=== PATIENT | female | born 1980 | race Two or more races ===

== ENCOUNTER 2021-07-21 20:27 | Observation (INO) | payer MEDICAID, SELFPAY ==
--- NOTE | ~2021-07-21 | XR_ITS ---
EXAMINATION: XR CHEST CLINICAL INFORMATION: Cough. COMPARISON: None. TECHNIQUE: PA view of the chest was obtained. FINDINGS: No significant abnormality is noted involving the heart, lungs, mediastinum, bony thorax or soft tissues. XR/XR chest 1V IMPRESSION: Unremarkable examination.
[2021-07-21 21:49] VITALS: BP 135/75; PULSE 86; RESP 18; TEMP 36.9; O2SAT 98; BMI 27.4
[2021-07-21 23:51] VITALS: BP 119/73; PULSE 67; RESP 18; TEMP 37; O2SAT 100
[2021-07-22] VITALS (7 sets, daily range): BP systolic 100–104; BP diastolic 67–86; PULSE 71–100; RESP 14–18; O2SAT 96–99
--- NOTE | 2021-07-22 00:29 | ED.ASTHMA ---
HPI - Asthma General Chief Complaint: Asthma Stated Complaint: COUGH Time Seen by Provider: 07/21/21 23:54 Source: patient Mode of arrival: ambulatory Limitations: no limitations History of Present Illness HPI Narrative: 40-year-old female past medical history significant for HIV unknown last CD4 count, asthma, homelessness presents to the emergency department with 1 week of progressively worsening cough, shortness of breath. Patient tells me that this feels like her typical asthma attack. He tells me she has been having an on productive dry cough has been worsening. She tells me she feels fatigued and tired. She reports subjective fevers and chills. She denies chest pain, nausea, vomiting, abdominal pain, headache, dizziness, neck pain. MD complaint: asthma attack and shortness of breath Onset (ago): week(s) (1) Severity: moderate Context: none known Associated symptoms: none Related Data Previous Rx's Medication Instructions Recorded albuterol sulfate 90 mcg/actuation 2 inh INHALATION Q4-6H PRN #1 ea 07/22/21 breath activated powder inhaler benzonatate 100 mg capsule 100 mg PO BID PRN #20 cap 07/22/21 prednisone 20 mg tablet 20 mg PO DAILY 5 Days #5 tab 07/22/21 sulfamethoxazole 800 1 tab PO BID 10 Days #20 tab 07/22/21 mg-trimethoprim 160 mg tablet (Bactrim DS) Allergies Allergy/AdvReac Type Severity Reaction Status Date / Time No Known Allergies Allergy Verified 07/21/21 21:53 Review of Systems Review of Systems: Constitutional : No Weight loss, No Fever, No Chills, No Fatigue, No Malaise ENT/Mouth : No sore throat, No Rhinorrhea Eyes: No Eye Pain, No Swelling, No Redness Cardiovascular : No Chest Pain, No SOB, No Dyspnea on Exertion, No Orthopnea, No Edema, No Palpitations Respiratory : No Cough, No Sputum, No Wheezing Gastrointestinal : No Nausea, No Vomiting, No Diarrhea, No Constipation, No abdominal Pain, No Hematochezia, No Melena Genitourinary : No Dysuria, No Urinary Frequency, No Hematuria, Musculoskeletal : No joint pain, No Myalgias, No Joint Swelling Skin : No Skin Lesions, No rash Neuro : No Weakness, No Numbness, No Dizziness, No Headache Psych : No Anxiety/Panic, No Depression All other systems reviewed and are negative Yes all other systems are reviewed and are negative [facility] Past Medical History Attestation statement: The following information was validated with the patient. Source: old records reviewed and nursing notes reviewed Medical History Anxiety Asthma Depressed HIV (human immunodeficiency virus infection) Social History Social History Advance Directives: No Physical Exam Vital Signs: Vital Signs: Last Vital Signs Temp 98.6 F 07/21/21 23:51 Pulse 96 07/22/21 03:12 Resp 16 07/22/21 03:12 BP 104/86 07/22/21 02:21 Pulse Ox 97 07/22/21 02:21 BMI result Body Mass Index 27.4 VSS Appearance: Alert.? Oriented X3.? No acute distress.? patient with dry nonproductive cough Head: Normocephalic, atraumatic, no step-offs or deformities Eyes: Pupils equal, round and reactive to light.? ENT: Pharynx normal.? Neck: Normal inspection.? Neck supple.? CVS: Normal heart rate and rhythm.? Pulses normal.? Respiratory: No respiratory distress.? +diminished breath sounds and wheezing throughout Abdomen: Soft and nontender.? Skin: Skin warm and dry.? Normal skin color.? Normal skin turgor.? Extremities: No lower extremity edema.? No calf ttp. 5/5 strength to bilateral upper and lower extremities Back: No midline tenderness, no C-spine tenderness, full range of motion, no CVA tenderness bilaterally Neuro: Oriented X 3.? No motor deficit.? No sensory deficit. CN 2-12 intact Course Reevaluation(s) Reevaluation #1: CBC appears to be within normal limits. COVID negative. Influenza negative. Chest x-ray unremarkable. Trop negative, EKG non ischemic. Chemistry pending. Time: 03:01 Reevaluation #2: Patient will be admitted for acute asthma exacerbation. Time: 03:06 Reevaluation #3: Chemistry hemolyzed. Dr. Gunderson will follow up on chemistry findings. Cultures, lactic and VBG pending. Time: 03:17 MDM - Asthma MDM Narrative Medical decision making narrative: [age] yo f pmhx asthma, hiv, homeless prsents w/ one week of asthma, cp and sob PE with diminished breath sounds bilaterally, wheezing. Patient with dry intermittent cough. regular rate and rhythm. Abdomen soft nontender nondistended. Negative Homans sign. VSS 100% on RA. No accessory muscle use for breathing. PERC negative unlikely PE Plan at this time is laboratory studies, COVID, influenza, troponin, magnesium Medical Records Attestation: I reviewed the patient's medical records. Lab Data Attestation: I reviewed the patient's lab results. Result diagrams: 07/22/21 02:18 07/22/21 02:18 Labs: Lab Results 07/22/21 07/22/21 07/22/21 Range/Units 01:43 02:18 02:18 WBC 9.8 (4.8-10.8) X10*3/uL RBC 3.92 L (4.20-5.50) X10*6/uL Hgb 11.7 L (12.0-16.0) g/dl Hct 37.7 (37.0-47.0) % MCV 96.2 (80.0-98.0) fL MCH 29.8 (27.0-33.0) pg MCHC 31.0 (31.0-35.0) g/dl RDW 15.7 (11.0-16.0) % Plt Count 283 (160-400) X10*3/uL MPV 10.2 (9.4-12.3) fL Immature Gran % (Auto) 0.3 (0.0-0.4) % Neut % (Auto) 50.6 (45-73) % Lymph % (Auto) 37.0 (20-40) % Laurens % (Auto) 8.4 (2-11) % Eos % (Auto) 3.3 (0-4) % Baso % (Auto) 0.4 (0-2) % Lymph # (Auto) 3.6 (1.2-4.9) X10*3/uL Laurens # (Auto) 0.8 (0.1-1.2) X10*3/uL Eos # (Auto) 0.3 (0.0-0.4) X10*3/uL Baso # (Auto) 0.0 (0.0-0.2) X10*3/uL Abs Immat Gran (auto) 0.03 (0.00-0.03) X10*3/uL Absolute Neuts (auto) 5.0 (2.0-8.3) x10*3/uL Absolute Nucleated RBC 0.000 (0.0-0.012) X10*3/uL Nucleated RBC % (auto) 0.0 (0.0-0.2) /100WBC Troponin I High Sens < 3.5 (<3.5-17.0) ng/L COVID-19 (DULCE) Negative (Negative) COVID-19 Clin Com See Note Influenza Type A (KEE) (Negative) Influenza Type B (KEE) (Negative) Influenza A & B Note 07/22/21 Range/Units 02:18 WBC (4.8-10.8) X10*3/uL RBC (4.20-5.50) X10*6/uL Hgb (12.0-16.0) g/dl Hct (37.0-47.0) % MCV (80.0-98.0) fL MCH (27.0-33.0) pg MCHC (31.0-35.0) g/dl RDW (11.0-16.0) % Plt Count (160-400) X10*3/uL MPV (9.4-12.3) fL Immature Gran % (Auto) (0.0-0.4) % Neut % (Auto) (45-73) % Lymph % (Auto) (20-40) % Laurens % (Auto) (2-11) % Eos % (Auto) (0-4) % Baso % (Auto) (0-2) % Lymph # (Auto) (1.2-4.9) X10*3/uL Laurens # (Auto) (0.1-1.2) X10*3/uL Eos # (Auto) (0.0-0.4) X10*3/uL Baso # (Auto) (0.0-0.2) X10*3/uL Abs Immat Gran (auto) (0.00-0.03) X10*3/uL Absolute Neuts (auto) (2.0-8.3) x10*3/uL Absolute Nucleated RBC (0.0-0.012) X10*3/uL Nucleated RBC % (auto) (0.0-0.2) /100WBC Troponin I High Sens (<3.5-17.0) ng/L COVID-19 (DULCE) (Negative) COVID-19 Clin Com Influenza Type A (KEE) Negative (Negative) Influenza Type B (KEE) Negative (Negative) Influenza A & B Note See Note ECG Data Attestation: I personally reviewed and interpreted this ECG as follows: ECG interpretation date: 07/22/21 ECG interpretation time: : Prior ECG tracings: not available for review Interpretation: Ventricular rate of 62 SC normal, QRS normal, QT / QTC normal. EKG shows normal sinus rhythm no ST elevations or inversions concerning for ischemia. No previous EKGs to compare with Critical Care Time Critical Care Time Critical Care Time: No Discharge Plan Discharge Clinical Impression: Bronchitis, Asthma with acute exacerbation Patient Disposition: Admitted As Inpatient Additional Instructions: Take your medications as prescribed. If you were prescribed antibiotics today, it is important that you take your medication to their entirety, do not skip any doses, do not finish them early. Follow-up with your primary care provider this week. Return to the emergency department with new or worsening symptoms. Such as fevers, chills, chest pain, shortness of breath, nausea, vomiting, dizziness, headache, vision changes, lethargy In case of emergency call 911
[2021-07-22] MEDS: Albuterol Sulfate (0.083%) 2.5 MG/3 ML VIAL.NEB 10 MG INHALE ×2 (01:14→03:09)
[2021-07-22 02:04] LABS: COVID-19 Test Negative (Negative)
--- NOTE | 2021-07-22 02:19 | ECG_ITS ---
Test Reason : dYSPNEA Blood Pressure : / mmHG Vent. Rate : 062 BPM Atrial Rate : 062 BPM P-R Int : 116 ms QRS Dur : 078 ms QT Int : 406 ms P-R-T Axes : 037 050 023 degrees QTc Int : 412 ms Normal sinus rhythm Normal ECG No previous ECGs available Referred By: Natalia Matta Electronically Signed By:BECKY CAIN MD
[2021-07-22 02:23] LABS: Basophils Percent Auto 0.4 % (0-2); Eosinophils Absolute Auto 0.3 X10*3/uL (0.0-0.4); Eosinophils Percent Auto 3.3 % (0-4); Hematocrit 37.7 % (37.0-47.0); Hemoglobin 11.7 g/dl (12.0-16.0); Imm Gran Abs Auto 0.03 X10*3/uL (0.00-0.03); Imm Gran Pct Auto 0.3 % (0.0-0.4); Lymphocytes Absolute Auto 3.6 X10*3/uL (1.2-4.9); Mean Corpuscular Hemoglobin 29.8 pg (27.0-33.0); Mean Corpuscular Volume 96.2 fL (80.0-98.0); Mean Platelet Volume 10.2 fL (9.4-12.3); Monocytes Absolute Auto 0.8 X10*3/uL (0.1-1.2); Monocytes Percent Auto 8.4 % (2-11); Neutrophils Percent Auto 50.6 % (45-73); Platelet Count 283 X10*3/uL (160-400); Red Blood Count 3.92 X10*6/uL (4.20-5.50); Red Cell Distribution Width 15.7 % (11.0-16.0); White Blood Count 9.8 X10*3/uL (4.8-10.8)
[2021-07-22 02:24] LABS: MANUAL DIFF FLAG NO
[2021-07-22] MEDS: Magnesium Sulfate/H2O 2 GM/50 ML PIGGYBACK IV (02:37)
[2021-07-22] MEDS: methylPREDNISolone Sod Succ 125 MG/2 ML VIAL IVPUSH (02:37)
[2021-07-22 02:48] LABS: Troponin-I High Sensitivity < 3.5 ng/L (<3.5-17.0)
[2021-07-22 02:50] LABS: Influenza A Negative (Negative); Influenza B2 Negative (Negative)
[2021-07-22 04:21] LABS: Venous Blood Gas Refer to POC result
[2021-07-22 04:22] LABS: VBG HCO3 19 mmol/L (22-26); VBG pCO2 29 mmHg; VBG pH 7.42 (7.32-7.43); VBG pO2 78 mmHg
[2021-07-22 04:36] LABS: Lactic Acid 3.4 mmol/L (0.5-2.0)
[2021-07-22 05:21] LABS: Alanine Aminotransferase 11 U/L (0-31); Albumin Level 3.8 g/dL (3.5-5.0); Alkaline Phosphatase 68 U/L (39-117); Anion Gap 15 (12-20); Aspartate Amino Transferase 17 U/L (5-31); Bilirubin Total 0.2 mg/dL (0.0-1.0); Blood Urea Nitrogen 12 mg/dL (9-16); Carbon Dioxide 20 mmol/L (22-29); Chloride 106 mmol/L (96-108); Creatinine Clr Calc Pharmacy 87.9; Estimated Glomerular Filt Rate > 60; Glucose Random 148 mg/dL (60-115); Magnesium 2.7 mg/dL (1.6-2.6); Potassium 3.2 mmol/L (3.3-5.1); Sodium 138 mmol/L (135-145)
[2021-07-22] MEDS: Enoxaparin Sodium 40 MG/0.4 ML SYRINGE SUBCUT (05:49)
[2021-07-22] MEDS: methylPREDNISolone Sod Succ 40 MG/ML VIAL IVPUSH (05:49)
[2021-07-22] MEDS: 0.9 % Sodium Chloride 1,000 ML 999 ML IV (05:51)
--- NOTE | 2021-07-22 06:03 | PM.IMHP ---
History of Present Illness Date of Service: 07/22/21 Chief Complaint: SOB Filipino-speaking only, history is obtained with help of rental sales agent 40-year-old female with past medical history of asthma,HIV and substance abuse who presents to the hospital with complaints of shortness of breath, wheezing, cough. Patient reports that she is homeless, does not have her with, has had her symptoms For 1 week and have been worsening. She reports chills with no fever, has palpitations, chest pain with cough, no abdominal pain nausea or vomiting, no diarrhea constipation. no lower extremity edema. No urinary symptoms. On arrival to the ED patient hemodynamically stable satting 99% on room air Labs are significant for WBC count of 9.8, hemoglobin of 11.7, potassium 3.2, lactic acid of 3.4, patient reports that she used crack cocaine the day before. patient also has history of HIV and reports that she is on medications all no documented medications on chart patient received multiple rounds of breathing treatment, as well as magnesium with persistent wheezing, and shortness of breath , therefore she will be admitted for further management Review of Systems Review of Systems: Yes all other systems are reviewed and are negative [facility] Medical History Anxiety Asthma Depressed HIV (human immunodeficiency virus infection) Family History (Updated 07/22/21 @ 06:08 by Rita Logan MD) Other No family history of coronary artery disease Surgical History (Updated 07/22/21 @ 06:08 by Rita Logan MD) History of Social History (Updated 07/22/21 @ 06:08 by Rita Logan MD) Alcohol intake: current Patient Tobacco Use Status: Never used Tobacco Use of substances other than those prescribed or required for medical reasons: Yes Substance Use Type: Crack/Cocaine Advance Directives: No Meds Allergies Allergy/AdvReac Type Severity Reaction Status Date / Time No Known Allergies Allergy Verified 07/21/21 21:53 Active Medications: Current Medications Acetaminophen (Acetaminophen 325 Mg Tablet) 650 mg PO Q6H PRN PRN Reason: Pain, Mild (Pain Scale 1-3) Albuterol/Ipratropium (Albuterol/Iprat 2.5/0.5mg 3 Ml Ampul.Neb) 3 ml INHALE RQ4H PRN PRN Reason: Shortness of Breath/Wheezing Albuterol/Ipratropium (Albuterol/Iprat 2.5/0.5mg 3 Ml Ampul.Neb) 3 ml INHALE RQ4H WHILE AWAKE [facility] Docusate Sodium (Docusate Sodium 100 Mg Capsule) 100 mg PO DAILY PRN PRN Reason: Constipation Enoxaparin Sodium (Enoxaparin Sodium 40 Mg/0.4 Ml Syringe) 40 mg SUBCUT Q24H [facility] Last Admin: 07/22/21 05:49 Dose: 40 mg Documented by: Methylprednisolone Sodium Succinate (Methylprednisolone Sod Succ 40 Mg/Ml Vial) 40 mg IVPUSH Q12H [facility] Last Admin: 07/22/21 05:49 Dose: 40 mg Documented by: Ondansetron HCl (Ondansetron Hcl 4 Mg/2 Ml Vial) 4 mg IVPUSH Q8H PRN PRN Reason: Nausea and Vomiting Sodium Chloride (0.9 % Sodium Chloride Flush 3 Ml Syringe) 3 ml IVFLUSH QSHIFT [facility] Physical Exam Vital Signs and Narrative: Vital Signs: Last Vital Signs Temp 98.6 F 07/21/21 23:51 Pulse 96 07/22/21 03:12 Resp 16 07/22/21 03:12 BP 104/86 07/22/21 02:21 Pulse Ox 97 07/22/21 02:21 BMI result Body Mass Index 27.4 Const: General: cooperative and no acute distress Orientation/consciousness: patient oriented x3 Eyes: General: appearance normal, both eyes and all related structures Pupils: Equal, round and reactive pupils present Resp: Other: expiratory wheezing Effort & Inspection: normal respiratory effort Cardio: Rate: regular rate Rhythm: regular rhythm GI: Palpation (GI): Soft to palpation Auscultation: normal bowel sounds Skin: General skin exam: no rashes or lesions noted Neuro: General: patient oriented x3 Cranial nerves: Yes Equal, round and reactive pupils present Cognition (Neuro): normal cognition Extrem: General: Yes normal to inspection and Yes no pedal edema Results Labs CBC and Chem 7: 07/22/21 02:18 07/22/21 04:11 Labs: Laboratory Results - last 24 hr 07/22/21 07/22/21 07/22/21 01:43 02:18 02:18 MCV 96.2 MCH 29.8 MCHC 31.0 RDW 15.7 Plt Count 283 MPV 10.2 Immature Gran % (Auto) 0.3 Neut % (Auto) 50.6 Lymph % (Auto) 37.0 Sunflower % (Auto) 8.4 Eos % (Auto) 3.3 Baso % (Auto) 0.4 Lymph # (Auto) 3.6 Sunflower # (Auto) 0.8 Eos # (Auto) 0.3 Baso # (Auto) 0.0 Abs Immat Gran (auto) 0.03 Absolute Neuts (auto) 5.0 Absolute Nucleated RBC 0.000 Nucleated RBC % (auto) 0.0 VBG pH VBG pCO2 VBG pO2 VBG HCO3 VBG O2 Saturation VBG Base Excess Anion Gap Estim Creat Clear Calc Estimated GFR Random Glucose Lactic Acid Calcium Magnesium Total Bilirubin AST ALT Alkaline Phosphatase Troponin I High Sens < 3.5 Total Protein Albumin COVID-19 (DULCE) Negative COVID-19 Clin Com See Note Influenza Type A (KEE) Influenza Type B (KEE) Influenza A & B Note 07/22/21 07/22/21 07/22/21 02:18 04:11 04:11 MCV MCH MCHC RDW Plt Count MPV Immature Gran % (Auto) Neut % (Auto) Lymph % (Auto) Sunflower % (Auto) Eos % (Auto) Baso % (Auto) Lymph # (Auto) Sunflower # (Auto) Eos # (Auto) Baso # (Auto) Abs Immat Gran (auto) Absolute Neuts (auto) Absolute Nucleated RBC Nucleated RBC % (auto) VBG pH VBG pCO2 VBG pO2 VBG HCO3 VBG O2 Saturation VBG Base Excess Anion Gap 15 Estim Creat Clear Calc 87.9 Estimated GFR > 60 Random Glucose 148 H Lactic Acid 3.4 H* Calcium 9.0 Magnesium 2.7 H Total Bilirubin 0.2 AST 17 ALT 11 Alkaline Phosphatase 68 Troponin I High Sens Total Protein 7.0 Albumin 3.8 COVID-19 (DULCE) COVID-19 Clin Com Influenza Type A (KEE) Negative Influenza Type B (KEE) Negative Influenza A & B Note See Note 07/22/21 04:14 MCV MCH MCHC RDW Plt Count MPV Immature Gran % (Auto) Neut % (Auto) Lymph % (Auto) Sunflower % (Auto) Eos % (Auto) Baso % (Auto) Lymph # (Auto) Sunflower # (Auto) Eos # (Auto) Baso # (Auto) Abs Immat Gran (auto) Absolute Neuts (auto) Absolute Nucleated RBC Nucleated RBC % (auto) VBG pH 7.42 VBG pCO2 29 VBG pO2 78 VBG HCO3 19 L VBG O2 Saturation 95.0 VBG Base Excess -4.0 Anion Gap Estim Creat Clear Calc Estimated GFR Random Glucose Lactic Acid Calcium Magnesium Total Bilirubin AST ALT Alkaline Phosphatase Troponin I High Sens Total Protein Albumin COVID-19 (DULCE) COVID-19 Clin Com Influenza Type A (KEE) Influenza Type B (KEE) Influenza A & B Note Imaging Radiologist's Impressions: Impressions Chest X-Ray 07/22/21 00:04 IMPRESSION: Unremarkable examination. Assessment and Plan (1) Asthma with acute exacerbation: Status: Acute Plan 40-year-old female who presents the hospital with complaints of shortness of breath found to have asthma exacerbation # asthma exacerbation - has no inhalers at home - exacerbating factor likely crack cocaine use - no evidence of viral infection and viral panel, negative for influenza and COVID-19 - will treat with Solu-Medrol, DuoNeb p.r.n. as well as scheduled - monitor respiratory status # HIV - reports that she takes medications although not documented - no known CD4 count - will need outpatient follow-up DVT prophylaxis: Lovenox Quality Stroke Does the patient have a stroke diagnosis?: No VTE Prior VTE?: No VTE Risk Level:: Medical - moderate - high VTE Device Contraindication: Treatment Not Indicated VTE Drug Contraindication: N/A - Med Ordered
[2021-07-22 06:17] LABS: Reflex Lactate? Lactic Acid Added
[2021-07-22 07:07] LABS: MANUAL DIFF FLAG NO
[2021-07-22 07:15] LABS: Basophils Percent Auto 0.4 % (0-2); Eosinophils Absolute Auto 0.1 X10*3/uL (0.0-0.4); Eosinophils Percent Auto 1.2 % (0-4); Hematocrit 34.3 % (37.0-47.0); Hemoglobin 10.9 g/dl (12.0-16.0); Imm Gran Abs Auto 0.03 X10*3/uL (0.00-0.03); Imm Gran Pct Auto 0.3 % (0.0-0.4); Lymphocytes Absolute Auto 1.8 X10*3/uL (1.2-4.9); Lymphocytes Percent Auto 16.5 % (20-40); Mean Corpuscular HGB Conc 31.8 g/dl (31.0-35.0); Mean Corpuscular Hemoglobin 29.9 pg (27.0-33.0); Mean Corpuscular Volume 94.2 fL (80.0-98.0); Monocytes Absolute Auto 0.6 X10*3/uL (0.1-1.2); Monocytes Percent Auto 5.8 % (2-11); Neutrophils Percent Auto 75.8 % (45-73); Platelet Count 268 X10*3/uL (160-400); Red Blood Count 3.64 X10*6/uL (4.20-5.50); Red Cell Distribution Width 15.5 % (11.0-16.0); White Blood Count 10.6 X10*3/uL (4.8-10.8)
--- NOTE | 2021-07-22 07:17 | PC.NURSE ---
This RN assumed care of patient when they were brought back from the waiting room. Patient and her were together in the same room, noted to be talking negatively about staff in Swedish. was discharged and instructed to wait in the waiting room until further notice. Patient upset about this, seen leaving to go visit in waiting room. Limits set regarding this behavior. Patient's attempted to come back into the room twice, became aggressive towards staff, required security intervention. Patient noticeably calmer without present. Patient understands that she will be admitted and agreed to stay for treatment.
[2021-07-22 07:27] LABS: Anion Gap 10 (12-20); Blood Urea Nitrogen 10 mg/dL (9-16); Calcium 8.6 mg/dL (8.4-10.2); Carbon Dioxide 22 mmol/L (22-29); Chloride 107 mmol/L (96-108); Creatinine Clr Calc Pharmacy 98.7; Estimated Glomerular Filt Rate > 60; Glucose Random 166 mg/dL (60-115); Potassium 3.2 mmol/L (3.3-5.1); Sodium 136 mmol/L (135-145)
[2021-07-22 07:31] LABS: ~Lactic Acid-LAB USE ONLY 2.1 mmol/L (0.5-2.0)
[2021-07-22] MEDS: Albuterol/Iprat 2.5/0.5MG 3 ML AMPUL.NEB INHALE (08:04)
[2021-07-22] MEDS: Potassium Chloride Packet 20 MEQ PACKET 40 MEQ PO ×2 (08:27→10:10)
[2021-07-22] MEDS: 0.9 % Sodium Chloride Flush 3 ML SYRINGE IVFLUSH (08:28)
--- NOTE | 2021-07-22 08:48 | PHA.MEDREC ---
Pharmacy Consult ? Medication Reconciliation Pharmacy has completed the medication reconciliation. Pt came from [place] on Sunday, but could not provide pharmacy name for contact. Had bottle of Dolutegravir 50mg/lamivudine 300mg bottle on her, but stated she has not been taking it because it is to be taken with a big meal and she has been homeless. Pt also stated that she takes something for cholesterol, depression, and hemoglobin but was unable to provide any information about what they were or doses. She stated she has not taken any of her medications for a while. Caren Golden, PharmD
[2021-07-22 09:05] LABS: Reflex Lactate? 2 Y
--- NOTE | 2021-07-22 09:34 | MHC.CM.PN ---
Addendum entered by Evelyn Arredondo 07/22/21 11:16: [facility] BUS SCHEDULES WERE PRINTED AND GIVEN TO PT AND HER BOYFRIEND WHO WAS AT BEDSIDE. INSTRUCTIONS WERE PROVIDED A SECOND TIME WITH BOYFRIEND PRESENT THEY BOTH REPORT UNDERSTANDING OBSERVATION NOTICE DELIVERED, COPY SENT TO MEDICAL RECORDS Original Note: CM MET WITH PT WITH THE ASSISTANCE OF A SOLUTION ARCHITECT [place] ONE W[place] AGO WITH PLANS TO STAY WITH HER BOYFRIEND IN HIS MOTHERS APARTMENT. SHE REPORTS SHE IS NOW HOMELESS BECAUSE HIS MOTHER WOULD NOT ALLOW HER TO STAY PT IS ALSO HIV POSITIVE AND DOES NOT HAVE ANY MEDICAL PROVIDERS OR MEDICATIONS PT ALSO ADMITS TO USING CRACK COCAINE PER DISCUSSION, PT WILL DC WITH A PLAN TO PRESENT TO THE [facility] TO INITIATE A [place] APPLICATION AND BE CONNECTED WITH A PHARMACEUTICAL SERVICE REPRESENTATIVE SHE WILL ALSO GO TO THE URGENT CARE SERVICES FOR HIV MEDICATIONS PT WILL BE GIVEN A LIST OF LOCAL SHELTERS AND BUS PASSES WELL AND WAS ENCOURAGED TO CONNECT WITH A PHARMACEUTICAL SERVICE REPRESENTATIVE AT THE SENIOR LIVING TO ASSIST HER IN SECURING DIRECTOR OF DIRECT MARKETING HOUSING
[2021-07-22 11:19] LABS: Potassium 4.1 mmol/L (3.3-5.1)
--- NOTE | 2021-07-22 11:41 | PM.DS ---
DS: Providers Provider Date of Service: 07/22/21 Date of admission: 07/22/21 04:52 Primary care physician: None Physician DS: Diagnosis Discharge Diagnosis (1) Asthma with acute exacerbation: Status: Acute DS: Summary Hospital Course Hospital Course: Same day admit and discharge Chief Complaint: SOB ? [place]-speaking only, history is obtained? with help of hourly sign language interpreter 40-year-old female with past medical history of asthma,HIV and substance abuse who presents to the hospital with complaints of shortness of breath, wheezing, cough.? Patient reports that she is homeless, does not have her with, has had her symptoms ? For 1 week and have been worsening.? She reports chills with no fever, has palpitations, chest pain with cough, no abdominal pain nausea or vomiting, no diarrhea constipation. no lower extremity edema.? No urinary symptoms. On arrival to the ED patient hemodynamically stable satting 99% on room air Labs are significant for WBC count of 9.8, hemoglobin of 11.7, potassium 3.2, lactic acid of 3.4, ?patient reports that she used crack cocaine the day before. patient also has history of HIV and reports that she is on medications all no documented medications on chart ?patient received multiple rounds of breathing treatment, as well as magnesium with persistent wheezing, and shortness of breath , therefore she will be admitted for further management hospital course 40-year-old female who presents the hospital with complaints of shortness of breath found to have mild asthma exacerbation #? acute mild asthma exacerbation with history of mild intermittent asthma, likely exacerbating factor crack cocaine use, no evidence of viral infection and viral panel negative for influenza, and COVID-19, patient treated with iv Solu-Medrol, DuoNeb p.r.n. as well as scheduled, with good response patient noted to have normal lung examination with good air entry bilaterally, therefore will transition to albuterol MDI 2 puffs q.4 hours as needed and will add Breo [place] came [place] few days ago, and is homeless recommended to follow up at [facility] and to establish primary care physician, patient noted to have lactic acidosis likely due to use of inhalers no evidence of sepsis, chest x-ray showed no infiltrate, mild hypokalemia resolved with potassium replacement, strongly recommend to abstain from illicit drug use. patient met with social media specialist and a list of local shelters and bus passes were given and patient was encouraged to connect with the medical case manager at the jail to assist in securing long-term housing. #? HIV as per patient she has her medication with her but currently not taking her informed her the importance of medication compliance recommended close follow-up with PCP and Infectious Disease Time Spent with Patient Time attestation: Total time spent providing and/or coordinating discharge services: Discharge coordination time: Greater than 30 minutes Quality: Safe Use of Opioids Does Pt have an Active Cancer Diagnosis on the Problem List?: No Quality: Stroke Does the patient have a stroke diagnosis?: No Physical Exam Vital Signs: Vital Signs: Last Vital Signs Temp 98.6 F 07/21/21 23:51 Pulse 94 07/22/21 11:30 Resp 16 07/22/21 11:30 BP 100/67 07/22/21 11:30 Pulse Ox 98 07/22/21 11:30 BMI result Body Mass Index 27.4 Const: Other: General awake alert, no acute distress. CVS regular rate rhythm, Respiratory lungs clear to auscultation, no respiratory distress, no wheeze, no rhonchi. Gastrointestinal abdomen soft, nontender, bowel sounds audible Extremities no edema. Neuro nonfocal Skin no rash Musculoskeletal no deformity DS: Data Data Completed and Pending Labs on day of discharge: Laboratory Results - last 24 hr 07/22/21 07/22/21 07/22/21 01:43 02:18 02:18 WBC 9.8 RBC 3.92 L Hgb 11.7 L Hct 37.7 MCV 96.2 MCH 29.8 MCHC 31.0 RDW 15.7 Plt Count 283 MPV 10.2 Immature Gran % (Auto) 0.3 Neut % (Auto) 50.6 Lymph % (Auto) 37.0 Davison % (Auto) 8.4 Eos % (Auto) 3.3 Baso % (Auto) 0.4 Lymph # (Auto) 3.6 Davison # (Auto) 0.8 Eos # (Auto) 0.3 Baso # (Auto) 0.0 Abs Immat Gran (auto) 0.03 Absolute Neuts (auto) 5.0 Absolute Nucleated RBC 0.000 Nucleated RBC % (auto) 0.0 VBG pH VBG pCO2 VBG pO2 VBG HCO3 VBG O2 Saturation VBG Base Excess Sodium Potassium Chloride Carbon Dioxide Anion Gap BUN Creatinine Estim Creat Clear Calc Estimated GFR Random Glucose Lactic Acid Lactic Acid F/U @ 2Hr Lactic Acid F/U @ 4Hr Calcium Magnesium Total Bilirubin AST ALT Alkaline Phosphatase Troponin I High Sens < 3.5 Total Protein Albumin COVID-19 ([facility]) Negative COVID-19 Clin Com See Note Influenza Type A (KEE) Influenza Type B (KEE) Influenza A & B Note 07/22/21 07/22/21 07/22/21 02:18 04:11 04:11 WBC RBC Hgb Hct MCV MCH MCHC RDW Plt Count MPV Immature Gran % (Auto) Neut % (Auto) Lymph % (Auto) Davison % (Auto) Eos % (Auto) Baso % (Auto) Lymph # (Auto) Davison # (Auto) Eos # (Auto) Baso # (Auto) Abs Immat Gran (auto) Absolute Neuts (auto) Absolute Nucleated RBC Nucleated RBC % (auto) VBG pH VBG pCO2 VBG pO2 VBG HCO3 VBG O2 Saturation VBG Base Excess Sodium 138 Potassium 3.2 L Chloride 106 Carbon Dioxide 20 L Anion Gap 15 BUN 12 Creatinine 0.91 Estim Creat Clear Calc 87.9 Estimated GFR > 60 Random Glucose 148 H Lactic Acid 3.4 H* Lactic Acid F/U @ 2Hr Lactic Acid F/U @ 4Hr Calcium 9.0 Magnesium 2.7 H Total Bilirubin 0.2 AST 17 ALT 11 Alkaline Phosphatase 68 Troponin I High Sens Total Protein 7.0 Albumin 3.8 COVID-19 ([facility]) COVID-19 Clin Com Influenza Type A (KEE) Negative Influenza Type B (KEE) Negative Influenza A & B Note See Note 07/22/21 07/22/21 07/22/21 04:14 07:00 07:00 WBC 10.6 RBC 3.64 L Hgb 10.9 L Hct 34.3 L MCV 94.2 MCH 29.9 MCHC 31.8 RDW 15.5 Plt Count 268 MPV 10.0 Immature Gran % (Auto) 0.3 Neut % (Auto) 75.8 H Lymph % (Auto) 16.5 L Davison % (Auto) 5.8 Eos % (Auto) 1.2 Baso % (Auto) 0.4 Lymph # (Auto) 1.8 Davison # (Auto) 0.6 Eos # (Auto) 0.1 Baso # (Auto) 0.0 Abs Immat Gran (auto) 0.03 Absolute Neuts (auto) 8.0 Absolute Nucleated RBC 0.000 Nucleated RBC % (auto) 0.0 VBG pH 7.42 VBG pCO2 29 VBG pO2 78 VBG HCO3 19 L VBG O2 Saturation 95.0 VBG Base Excess -4.0 Sodium 136 Potassium 3.2 L Chloride 107 Carbon Dioxide 22 Anion Gap 10 L BUN 10 Creatinine 0.81 Estim Creat Clear Calc 98.7 Estimated GFR > 60 Random Glucose 166 H Lactic Acid Lactic Acid F/U @ 2Hr Lactic Acid F/U @ 4Hr Calcium 8.6 Magnesium Total Bilirubin AST ALT Alkaline Phosphatase Troponin I High Sens Total Protein Albumin COVID-19 ([facility]) COVID-19 [facility] Com Influenza Type A (KEE) Influenza Type B (KEE) Influenza A & B Note 07/22/21 07/22/21 07/22/21 07:00 09:22 10:57 WBC RBC Hgb Hct MCV MCH MCHC RDW Plt Count MPV Immature Gran % (Auto) Neut % (Auto) Lymph % (Auto) Davison % (Auto) Eos % (Auto) Baso % (Auto) Lymph # (Auto) Davison # (Auto) Eos # (Auto) Baso # (Auto) Abs Immat Gran (auto) Absolute Neuts (auto) Absolute Nucleated RBC Nucleated RBC % (auto) VBG pH VBG pCO2 VBG pO2 VBG HCO3 VBG O2 Saturation VBG Base Excess Sodium Potassium 4.1 D Chloride Carbon Dioxide Anion Gap BUN Creatinine Estim Creat Clear Calc Estimated GFR Random Glucose Lactic Acid Lactic Acid F/U @ 2Hr 2.1 H* Lactic Acid F/U @ 4Hr 2.7 H* Calcium Magnesium Total Bilirubin AST ALT Alkaline Phosphatase Troponin I High Sens Total Protein Albumin COVID-19 ([facility]ULCE) COVID-19 [facility] Com Influenza Type A (KEE) Influenza Type B (KEE) Influenza A & B Note Discharge Plan Discharge Patient Disposition: Home, Self-Care Discharge Diagnosis: acute asthma exacerbation Referrals: Physician,None [Primary Care Provider] - 1 Week Discharge Medications: New albuterol sulfate [Ventolin HFA] 90 mcg/actuation Hfa Aerosol Inhaler 2 puff inhalation Q4H PRN (Reason: sob) Qty: 1 0RF Breo Ellipta 100-25 mcg/dose Blister With Device 1 puff inhalation RDAILY Qty: 1 0RF Continued dolutegravir-lamivudine 50-300 mg Tablet 1 tab PO BEDTIME 0RF Discharge Orders: Discharge Order (Routine); Ordered 07/22/21 Ordered By: Emily Simms Diet: advance to usual diet Activity on Discharge: As tolerated Stand Alone Forms: Patient Portal Discharge page, Work/School Release Activity Restrictions/Additional Instructions: Take your medications as prescribed. Follow-up with your primary care provider this week. Return to the emergency department with new or worsening symptoms. Such as fevers, chills, chest pain, shortness of breath, nausea, vomiting, dizziness, headache, vision changes, lethargy In case of emergency call 911 Care Plan Goals: history of mild intermittent asthma, likely exacerbated by cocaine use/ cold, recommend to use albuterol inhaler 2 puffs every 4 hour as needed for shortness of breath and take Breo 1 puff daily Health Concerns: asthma/ HIV/cocaine use disorder, strongly recommend to abstain from illicit drug use, avoid secondhand smoke Plan of Treatment: arrange for primary care physician Assessment: per discharge summary Patient Instructions: Acute Bronchitis (ED)
[2021-07-22] MEDS: Albuterol Sulfate 90 MCG 8 GM INHALER 2 PUFF INHALE (11:54)
[2021-07-22 12:38] LABS: ~Lactic Acid-LAB USE ONLY 2.7 mmol/L (0.5-2.0)
== END 2021-07-22 11:59 | disposition home or self-care (01) ==
LOC: HO.ED 07-22 03:11 → HO.EDOVER 07-22 06:13
PROVIDERS: Physician Assistant; Admitting Provider Internal Medicine; Emergency Provider Emergency Medicine; Visit Provider Hospitalist
DX: J45.901 Unspecified asthma with (acute) exacerbation (principal); J45.21 Mild intermittent asthma with (acute) exacerbation; R05.9 Cough, unspecified; R06.02 Shortness of breath; E87.2 Acidosis; B20 Human immunodeficiency virus [HIV] disease; F41.8 Other specified anxiety disorders; F14.10 Cocaine abuse, uncomplicated; Z20.822 Contact with and (suspected) exposure to COVID-19; Z79.899 Other long term (current) drug therapy; Z59.00 Homelessness unspecified
CPT/HCPCS: 36415; 71045; 80048; 80053; 82803; 83605; 83735; 84132; 84484; 85025; 87040; 87502; 87635; 93005; 94640; 94644; 94645; 96361; 96365; 96366; 96372; 96375; 99218; 99285; J1650; J2920; J2930; J3475